=== PATIENT | male | born 1950 | race Two or more races ===

== ENCOUNTER 2016-03-28 08:20 | Emergency (ER) | payer OTHER ==
[~2016-03-28] VITALS: Ht 172.7 cm; Wt 104.8 kg
[~2016-03-28 08:20] MED LIST: ASPI81CH43 PO; ATOR20TA50 PO; DOCU60SY2 PO; ENA2.5T PO; GLIP-116 PO; INSLANTI SC; INSLISPI SC; MET25T PO; METF-316 PO; ZOLP12.564 PO
[2016-03-28 08:31] VITALS: BP 157/86
== END 2016-03-28 08:56 | disposition home or self-care (01) ==
LOC: ER 08:23
DX: I10 Essential (primary) hypertension (principal); E11.9 Type 2 diabetes mellitus without complications; I25.10 Atherosclerotic heart disease of native coronary artery without angina pectoris; E78.5 Hyperlipidemia, unspecified; Z76.0 Encounter for issue of repeat prescription; Z79.4 Long term (current) use of insulin

== ENCOUNTER 2016-04-24 13:35 | Emergency (ER) | payer OTHER ==
[~2016-04-24] VITALS: Ht 172.7 cm; Wt 99.8 kg
[2016-04-24] MEDS ORDERED: LIDOCAINE 1% HCL (LOCAL ANESTH.) INJ 20ML MDV ONE (15:38)
[2016-04-24] MEDS ORDERED: HYDROcodone-ACET 10/325MG TAB PO ONE (15:45)
[2016-04-24] MEDS ORDERED: TETANUS-DIPTH-ACEL PERTUSSIS 0.5ML SYRG IM ONE (15:45)
[2016-04-24 16:13] VITALS: BP 149/97
[2016-04-24] MEDS ORDERED: LIDOCAINE 1% HCL (LOCAL ANESTH.) INJ 20ML MDV IJ ONE (16:30)
[2016-04-24] MEDS ORDERED: BACITRACIN TOP OINT 1 UD PKG TOP ONE (18:00)
== END 2016-04-24 18:46 | disposition home or self-care (01) ==
LOC: ER 13:43
DX: S61.411A Laceration without foreign body of right hand, initial encounter (principal); I25.10 Atherosclerotic heart disease of native coronary artery without angina pectoris; I10 Essential (primary) hypertension; E11.9 Type 2 diabetes mellitus without complications; E78.5 Hyperlipidemia, unspecified; Z23 Encounter for immunization; Z79.4 Long term (current) use of insulin; Z79.899 Other long term (current) drug therapy; Z79.82 Long term (current) use of aspirin; W27.8XXA Contact with other nonpowered hand tool, initial encounter; Y93.89 Activity, other specified; Y99.8 Other external cause status; Y92.099 Unspecified place in other non-institutional residence as the place of occurrence of the external cause
CPT/HCPCS: 12002; 82962; 90471; 90715; 99283; J2001

== ENCOUNTER → 2016-05-09 | Outpatient (CLI) | payer OTHER ==
[2016-05-09 10:04] LABS: Basophils # (auto) 0.1 uL; Basophils % (auto) 0.6 % (0.0-2.0); Eosinophils # (auto) 0.4 uL; Eosinophils % (auto) 4.4 % (0.0-7.0); Hematocrit 45.3 % (41.0-53.0); Hemoglobin 15.3 g/dL (13.5-17.5); Lymphocytes # (auto) 3.2 uL; Mean Corpuscular Hemoglobin 30.8 pg (28.0-32.0); Mean Corpuscular Hgb Conc. 33.7 g/dL (32.0-36.0); Mean Corpuscular Volume 91.4 fL (80.0-100.0); Mean Platelet Volume 9.5 fL (7.4-10.4); Monocytes # (auto) 0.4 uL; Monocytes % (auto) 5.2 % (0.0-12.0); Neutrophils # (auto) 4.1 uL; Neutrophils % (auto) 50.8 % (37.0-80.0); Platelet Count (auto) 282 10^3/uL (140-450); Red Cell Distribution Width 13.8 % (11.6-16.0); White Blood Cell 8.1 10^3/uL (4.4-10.8)
[2016-05-09 10:15] LABS: Urine Bilirubin Negative (Negative); Urine Blood Negative /uL (Negative); Urine Color Yellow (Yellow); Urine Glucose Normal (Normal); Urine Ketone Negative (Negative); Urine Nitrite Negative (Negative); Urine RBC 1 /hpf (0 - 3); Urine Squamous Epithelial Cell FEW /hpf (<5); Urine Urobilinogen Normal (Negative)
[2016-05-09 11:02] LABS: Albumin 3.8 g/dL (3.4-5.0); BUN/Creatinine Ratio 20.5; Bilirubin, Total 0.3 mg/dL (0.2-1.0); Calcium 8.9 mg/dL (8.5-10.1); Potassium 4.4 mmol/L (3.5-5.1); Total Protein 7.3 g/dL (6.4-8.2)
== END | disposition home or self-care (01) ==
LOC: LAB 07:30
PROVIDERS: ATTEND Family Medicine
DX: E66.9 Obesity, unspecified (principal); E11.9 Type 2 diabetes mellitus without complications; I10 Essential (primary) hypertension; Z79.4 Long term (current) use of insulin; E78.5 Hyperlipidemia, unspecified
CPT/HCPCS: 36415; 80053; 80061; 81001; 82043; 82306; 82607; 83036; 84153; 85025

== ENCOUNTER → 2016-07-16 | Outpatient (CLI) | payer OTHER | END | disposition home or self-care (01) | LOC: XYW 08:18 | PROVIDERS: ATTEND Internal Medicine Cardiovascular Disease | DX: I34.0 Nonrheumatic mitral (valve) insufficiency (principal); I70.0 Atherosclerosis of aorta | CPT/HCPCS: 93306 ==

== ENCOUNTER → 2016-10-01 | Outpatient (CLI) | payer OTHER ==
[~2016-10-01] MED LIST changes: -METF-316 PO; +METF-372 PO
[2016-10-01 09:33] LABS: INR 0.92 (0.9-1.15); Partial Thromboplastin Time 27.5 sec (22.64-33.71)
[2016-10-01 09:41] LABS: Basophils # (auto) 0.1 uL; Basophils % (auto) 0.9 % (0.0-2.0); CONDITION Y; Eosinophils # (auto) 0.3 uL; Eosinophils % (auto) 3.9 % (0.0-7.0); Hematocrit 44.8 % (41.0-53.0); Hemoglobin 15.5 g/dL (13.5-17.5); Lymphocytes # (auto) 3.1 uL; Lymphocytes % (auto) 39.8 % (10.0-50.0); Mean Corpuscular Hemoglobin 31.6 pg (28.0-32.0); Mean Corpuscular Hgb Conc. 34.5 g/dL (32.0-36.0); Mean Corpuscular Volume 91.5 fL (80.0-100.0); Mean Platelet Volume 10.1 fL (7.4-10.4); Monocytes # (auto) 0.5 uL; Monocytes % (auto) 5.9 % (0.0-12.0); Neutrophils # (auto) 3.8 uL; Neutrophils % (auto) 49.5 % (37.0-80.0); Platelet Count (auto) 241 10^3/uL (140-450); Red Cell Distribution Width 13.7 % (11.6-16.0); White Blood Cell 7.7 10^3/uL (4.4-10.8)
[2016-10-01 10:05] LABS: Albumin 3.8 g/dL (3.4-5.0); BUN/Creatinine Ratio 17.6; Bilirubin, Total 0.3 mg/dL (0.2-1.0); Potassium 3.8 mmol/L (3.5-5.1); Total Protein 7.5 g/dL (6.4-8.2)
== END | disposition home or self-care (01) ==
LOC: LAB 08:08
PROVIDERS: ATTEND Family Medicine
DX: I10 Essential (primary) hypertension (principal); Z01.812 Encounter for preprocedural laboratory examination; E11.9 Type 2 diabetes mellitus without complications; I49.8 Other specified cardiac arrhythmias
CPT/HCPCS: 36415; 80053; 83036; 85025; 85610; 85730

== ENCOUNTER → 2016-12-10 | Outpatient (CLI) | payer OTHER ==
[~2016-12-10] VITALS: Ht 175.3 cm; Wt 102.1 kg
== END | disposition home or self-care (01) ==
LOC: Rad HDHVI 14:38
PROVIDERS: ATTEND Internal Medicine Cardiovascular Disease
DX: Z01.810 Encounter for preprocedural cardiovascular examination (principal); I10 Essential (primary) hypertension; E11.9 Type 2 diabetes mellitus without complications; E78.00 Pure hypercholesterolemia, unspecified; I25.2 Old myocardial infarction; I25.10 Atherosclerotic heart disease of native coronary artery without angina pectoris
CPT/HCPCS: 78452; 93017; 96374; A9500

== ENCOUNTER 2017-02-14 17:29 | Inpatient (IN) | payer OTHER ==
[~2017-02-14] VITALS: Ht 172.7 cm; Wt 105.2 kg
[2017-02-14 18:46] LABS: Urine Bilirubin Negative (Negative); Urine Blood Negative /uL (Negative); Urine Color Yellow (Yellow); Urine Glucose Normal (Normal); Urine Ketone Negative (Negative); Urine Nitrite Negative (Negative); Urine RBC <1 /hpf (0 - 3); Urine Sperm PRESENT /hpf (None Seen); Urine Urobilinogen Normal (Negative)
[2017-02-14 18:50] LABS: Basophils # (auto) 0.1 uL; Eosinophils # (auto) 0.3 uL; Eosinophils % (auto) 3.2 % (0.0-7.0); Hematocrit 43.1 % (41.0-53.0); Hemoglobin 15.1 g/dL (13.5-17.5); Lymphocytes # (auto) 2.5 uL; Lymphocytes % (auto) 30.5 % (10.0-50.0); Mean Corpuscular Hemoglobin 31.9 pg (28.0-32.0); Mean Corpuscular Hgb Conc. 34.9 g/dL (32.0-36.0); Mean Corpuscular Volume 91.4 fL (80.0-100.0); Mean Platelet Volume 8.8 fL (6.9-10.8); Monocytes # (auto) 0.5 uL; Monocytes % (auto) 6.7 % (0.0-12.0); Neutrophils # (auto) 4.8 uL; Neutrophils % (auto) 58.6 % (37.0-80.0); Nucleated Red Blood Cells % 0.1 %; Platelet Count (auto) 235 10^3/uL (140-450); Red Cell Distribution Width 13.8 % (11.8-14.3); White Blood Cell 8.2 10^3/uL (4.4-10.8)
[2017-02-14 19:05] LABS: Albumin 3.7 g/dL (3.4-5.0); Anion Gap 8 (5-15); Aspartate Aminotransferase 29 U/L (15-37); BUN/Creatinine Ratio 14.6; Blood Urea Nitrogen 13 mg/dL (7-18); Calcium 8.9 mg/dL (8.5-10.1); Carbon Dioxide 27 mmol/L (21-32); Chloride 103 mmol/L (98-107); GFR African American 110 mL/min; GFR Non-African American 91 mL/min; Glucose 117 mg/dL (74-106); Potassium 3.9 mmol/L (3.5-5.1); Sodium 138 mmol/L (136-145)
[2017-02-14 19:10] LABS: Alkaline Phosphatase 89 U/L (45-117); Bilirubin, Total 0.4 mg/dL (0.2-1.0); Total Protein 7.6 g/dL (6.4-8.2)
[2017-02-14 20:36] LABS: B-Type Natriuretic Peptide 19.15 pg/mL (0-100)
[2017-02-14 20:50] LABS: Temperature: 22.8 C (20.0-25.0)
[2017-02-14] MEDS ORDERED: NITROGLYCERIN 0.4MG/HR TOPICAL PATCH TD ONE (21:00)
[2017-02-14] MEDS ORDERED: ASPirin-EC 325mg tab PO ONE (21:00)
[2017-02-14] MEDS ORDERED: DEXTROSE (50%) 50ML SYRG IV PRN (22:30)
[2017-02-14] MEDS ORDERED: HYDROcodone-ACET 5/325MG TAB PO PRN (22:30)
[2017-02-14] MEDS ORDERED: MORPHINE SULF INJ 2 MG/ML SYRINGE 1ML IV PRN (22:30)
[2017-02-14] MEDS ORDERED: ZOLPIDEM TARTRATE 5 MG TAB PO PRN (22:30)
[2017-02-14] MEDS ORDERED: ONDANSETRON HCL 4 MG/2 ML VIAL IV PRN (22:30)
[2017-02-14] MEDS ORDERED: ACETAMINOPHEN 325 MG TAB PO PRN (22:30)
[2017-02-14] MEDS: ENALAPRIL MALEATE 2.5 MG TAB PO SCH (22:37)
[2017-02-14 23:46] VITALS: BP 143/82
[2017-02-15] MEDS: ACCU-CHEK COMFORT CURVE STRIP VI SCH ×4 (00:28→17:50)
[2017-02-15 00:38] VITALS: BP 143/82
[2017-02-15 05:00] VITALS: BP 152/87
[2017-02-15] MEDS: glipiZIDE 5 MG TAB PO SCH ×2 (06:13→17:45)
[2017-02-15] MEDS: InsuLIN REG 1unit/0.01ml Soln (100units/ml) SC SCH ×4 (06:13→17:50)
[2017-02-15 06:19] LABS: Basophils # (auto) 0.1 uL; Basophils % (auto) 0.9 % (0.0-2.0); Eosinophils # (auto) 0.3 uL; Eosinophils % (auto) 4.6 % (0.0-7.0); Hematocrit 42.8 % (41.0-53.0); Hemoglobin 14.8 g/dL (13.5-17.5); Lymphocytes # (auto) 2.7 uL; Lymphocytes % (auto) 38.4 % (10.0-50.0); Mean Corpuscular Hemoglobin 31.6 pg (28.0-32.0); Mean Corpuscular Hgb Conc. 34.4 g/dL (32.0-36.0); Mean Corpuscular Volume 91.8 fL (80.0-100.0); Mean Platelet Volume 8.8 fL (6.9-10.8); Monocytes # (auto) 0.5 uL; Monocytes % (auto) 7.3 % (0.0-12.0); Neutrophils # (auto) 3.5 uL; Neutrophils % (auto) 48.8 % (37.0-80.0); Nucleated Red Blood Cells % 0.1 %; Platelet Count (auto) 204 10^3/uL (140-450); Red Cell Distribution Width 13.9 % (11.8-14.3); White Blood Cell 7.1 10^3/uL (4.4-10.8)
[2017-02-15 06:36] LABS: Albumin 3.4 g/dL (3.4-5.0); Anion Gap 7 (5-15); Aspartate Aminotransferase 19 U/L (15-37); BUN/Creatinine Ratio 16.9; Blood Urea Nitrogen 14 mg/dL (7-18); Calcium 8.8 mg/dL (8.5-10.1); Carbon Dioxide 26 mmol/L (21-32); Chloride 107 mmol/L (98-107); GFR African American 119 mL/min; GFR Non-African American 98 mL/min; Glucose 199 mg/dL (74-106); Sodium 140 mmol/L (136-145)
[2017-02-15 06:41] LABS: Alkaline Phosphatase 85 U/L (45-117); Bilirubin, Total 0.4 mg/dL (0.2-1.0); Total Protein 6.8 g/dL (6.4-8.2)
[2017-02-15 07:58] VITALS: BP 130/61
[2017-02-15] MEDS: FAMOTIDINE 20 MG TAB PO SCH ×2 (09:42→22:17)
[2017-02-15] MEDS: ASPirin 81 mg TAB PO SCH (09:42)
[2017-02-15] MEDS: ENOXAPARIN SOD 40 MG/0.4 ML SYRINGE SC SCH (09:42)
[2017-02-15] MEDS: ENALAPRIL MALEATE 2.5 MG TAB PO SCH ×2 (09:43→22:17)
[2017-02-15] MEDS: METOPROLOL TARTRATE 25 MG TAB PO SCH ×2 (09:43→22:17)
[2017-02-15 12:00] VITALS: BP 145/81
[2017-02-15 17:07] VITALS: BP 143/87
[2017-02-15 21:30] VITALS: BP 144/77
[2017-02-15] MEDS: ATORVASTATIN 20 MG TAB PO SCH (22:17)
[2017-02-16 05:00] VITALS: BP 137/73
[2017-02-16 05:52] LABS: INR 0.95 (0.9-1.15); Prothrombin Time 10.4 sec (9.37-12.3)
[2017-02-16] MEDS: glipiZIDE 5 MG TAB PO SCH ×2 (07:05→17:29)
[2017-02-16] MEDS: ACCU-CHEK COMFORT CURVE STRIP VI SCH ×4 (07:05→17:29)
[2017-02-16] MEDS: InsuLIN REG 1unit/0.01ml Soln (100units/ml) SC SCH ×4 (07:06→17:29)
[2017-02-16 07:45] VITALS: BP 151/78
[2017-02-16] MEDS: ASPirin 81 mg TAB PO SCH (09:25)
[2017-02-16] MEDS: FAMOTIDINE 20 MG TAB PO SCH ×2 (09:26→22:22)
[2017-02-16] MEDS: ENALAPRIL MALEATE 2.5 MG TAB PO SCH ×2 (09:26→22:23)
[2017-02-16] MEDS: ENOXAPARIN SOD 40 MG/0.4 ML SYRINGE SC SCH (09:27)
[2017-02-16] MEDS: METOPROLOL TARTRATE 25 MG TAB PO SCH ×2 (09:27→22:22)
[2017-02-16 12:00] VITALS: BP 151/87
[2017-02-16] MEDS: NITROGLYCERIN 0.4 MG SL TAB SL PRN ×2 (14:28→14:40)
[2017-02-16 17:17] VITALS: BP 129/86
[2017-02-16 22:00] VITALS: BP 145/84
[2017-02-16] MEDS: ATORVASTATIN 20 MG TAB PO SCH (22:21)
[2017-02-17] MEDS: InsuLIN REG 1unit/0.01ml Soln (100units/ml) SC SCH ×5 (00:03→23:21)
[2017-02-17] MEDS: ACCU-CHEK COMFORT CURVE STRIP VI SCH ×5 (00:04→23:18)
[2017-02-17 05:00] VITALS: BP 119/69
[2017-02-17 05:40] LABS: Basophils # (auto) 0.1 uL; Basophils % (auto) 1.1 % (0.0-2.0); Eosinophils # (auto) 0.3 uL; Eosinophils % (auto) 3.8 % (0.0-7.0); Hemoglobin 15.9 g/dL (13.5-17.5); Lymphocytes # (auto) 2.8 uL; Lymphocytes % (auto) 33.2 % (10.0-50.0); Mean Corpuscular Hemoglobin 31.7 pg (28.0-32.0); Mean Corpuscular Hgb Conc. 34.7 g/dL (32.0-36.0); Mean Corpuscular Volume 91.4 fL (80.0-100.0); Mean Platelet Volume 9.1 fL (6.9-10.8); Monocytes # (auto) 0.6 uL; Monocytes % (auto) 7.1 % (0.0-12.0); Neutrophils # (auto) 4.6 uL; Neutrophils % (auto) 54.8 % (37.0-80.0); Nucleated Red Blood Cells % 0.1 %; Platelet Count (auto) 216 10^3/uL (140-450); Red Cell Distribution Width 13.6 % (11.8-14.3); White Blood Cell 8.4 10^3/uL (4.4-10.8)
[2017-02-17 05:57] LABS: Albumin 3.6 g/dL (3.4-5.0); Calcium 8.8 mg/dL (8.5-10.1); Potassium 3.9 mmol/L (3.5-5.1)
[2017-02-17 05:59] LABS: BUN/Creatinine Ratio 21.3
[2017-02-17 06:02] LABS: Bilirubin, Total 0.5 mg/dL (0.2-1.0); Total Protein 7.2 g/dL (6.4-8.2)
[2017-02-17] MEDS: glipiZIDE 5 MG TAB PO SCH ×2 (06:55→18:07)
[2017-02-17 08:20] VITALS: BP 138/81
[2017-02-17] MEDS: ASPirin 81 mg TAB PO SCH (10:00)
[2017-02-17] MEDS: ENOXAPARIN SOD 40 MG/0.4 ML SYRINGE SC SCH (10:00)
[2017-02-17] MEDS: ENALAPRIL MALEATE 2.5 MG TAB PO SCH ×2 (10:31→21:31)
[2017-02-17] MEDS: FAMOTIDINE 20 MG TAB PO SCH ×2 (10:31→21:31)
[2017-02-17] MEDS: METOPROLOL TARTRATE 25 MG TAB PO SCH ×2 (10:32→21:32)
[2017-02-17] MEDS ORDERED: LIDOCAINE 2%HCL (LOCAL ANESTH.) INJ 20ML MDV ONE (12:43)
[2017-02-17] MEDS ORDERED: IOHEXOL 350 MG/ML 100ML IJ ONE (12:43)
[2017-02-17 13:15] VITALS: BP 150/85
[2017-02-17] MEDS ORDERED: MIDAZOLAM HCL 1MG/1ML-2 ML VIAL ONE (13:53)
[2017-02-17] MEDS ORDERED: fentaNYL CITRATE 100 MCG/2 ML VL ONE (13:54)
[2017-02-17] MEDS ORDERED: SODIUM CHL 0.9% 0 ML ONE (13:55)
[2017-02-17] MEDS ORDERED: ANGIOMAX 250 MG VIAL IV ONE (14:06)
[2017-02-17] MEDS ORDERED: GABA-497 PO (16:33)
[2017-02-17] MEDS ORDERED: SIMV-8 PO (16:33)
[2017-02-17] MEDS ORDERED: BENA40TA7 PO (16:33)
[2017-02-17 16:51] VITALS: BP 126/77
[2017-02-17 18:00] VITALS: BP 141/80
[2017-02-17] MEDS: ATORVASTATIN 20 MG TAB PO SCH (21:31)
[2017-02-17 22:00] VITALS: BP 150/83
[2017-02-18 05:00] VITALS: BP 146/76
[2017-02-18] MEDS: ACCU-CHEK COMFORT CURVE STRIP VI SCH ×2 (05:51→12:00)
[2017-02-18] MEDS: InsuLIN REG 1unit/0.01ml Soln (100units/ml) SC SCH ×2 (05:51→12:00)
[2017-02-18] MEDS: glipiZIDE 5 MG TAB PO SCH (05:52)
[2017-02-18] MEDS ORDERED: ATOR20TA50 PO (08:32)
[2017-02-18 09:00] VITALS: BP 142/83
[2017-02-18] MEDS ORDERED: ASPirin 81 mg TAB PO SCH (10:00)
[2017-02-18] MEDS: ENALAPRIL MALEATE 2.5 MG TAB PO SCH (10:02)
[2017-02-18] MEDS: ENOXAPARIN SOD 40 MG/0.4 ML SYRINGE SC SCH (10:02)
[2017-02-18] MEDS: FAMOTIDINE 20 MG TAB PO SCH (10:02)
[2017-02-18] MEDS: METOPROLOL TARTRATE 25 MG TAB PO SCH (10:03)
[2017-02-18 10:43] VITALS: BP 142/83
[2017-02-18 12:00] VITALS: BP 145/79
== END 2017-02-18 12:08 | disposition home or self-care (01) | DRG 287 ==
LOC: ER 17:31 → TELE 17:32 → TELE-CENTR 23:30
PROVIDERS: ADMIT Nurse Practitioner; ATTEND Internal Medicine
PROC: 4A023N7 Measurement of Cardiac Sampling and Pressure, Left Heart, Percutaneous Approach (ICD-10-PCS; principal; 2017-02-17)
PROC: B2111ZZ Fluoroscopy of Multiple Coronary Arteries using Low Osmolar Contrast (ICD-10-PCS; 2017-02-17)
PROC: B2151ZZ Fluoroscopy of Left Heart using Low Osmolar Contrast (ICD-10-PCS; 2017-02-17)
DX: I25.119 Atherosclerotic heart disease of native coronary artery with unspecified angina pectoris (principal); E11.9 Type 2 diabetes mellitus without complications; I08.0 Rheumatic disorders of both mitral and aortic valves; E78.5 Hyperlipidemia, unspecified; I10 Essential (primary) hypertension; Z82.49 Family history of ischemic heart disease and other diseases of the circulatory system; Z83.3 Family history of diabetes mellitus; Z79.82 Long term (current) use of aspirin; Z79.4 Long term (current) use of insulin
CPT/HCPCS: 36415; 71010; 80053; 81001; 82962; 83036; 83735; 83880; 84484; 85025; 85610; 85730; 86850; 86900; 86901; 93005; 93458; 93971; 99152; J1815; J2250

== ENCOUNTER 2017-03-19 00:45 | Emergency (ER) | payer OTHER ==
[~2017-03-19] VITALS: Ht 172.7 cm; Wt 99.8 kg
[~2017-03-19 00:45] MED LIST changes: +BENA40TA7 PO; -ENA2.5T PO; +GABA300C10 PO; -GLIP-116 PO; +SIMV-8 PO
[2017-03-19 00:51] VITALS: BP 177/106
[2017-03-19 01:29] LABS: Basophils # (auto) 0.1 uL; Basophils % (auto) 1.4 % (0.0-2.0); Eosinophils # (auto) 0.2 uL; Eosinophils % (auto) 3.4 % (0.0-7.0); Hematocrit 43.8 % (41.0-53.0); Hemoglobin 15.3 g/dL (13.5-17.5); Lymphocytes % (auto) 30.6 % (10.0-50.0); Mean Corpuscular Hemoglobin 31.8 pg (28.0-32.0); Mean Corpuscular Hgb Conc. 34.8 g/dL (32.0-36.0); Mean Corpuscular Volume 91.3 fL (80.0-100.0); Monocytes # (auto) 0.4 uL; Monocytes % (auto) 6.8 % (0.0-12.0); Neutrophils # (auto) 3.8 uL; Neutrophils % (auto) 57.8 % (37.0-80.0); Platelet Count (auto) 213 10^3/uL (140-450); Red Cell Distribution Width 13.7 % (11.8-14.3); White Blood Cell 6.5 10^3/uL (4.4-10.8)
[2017-03-19 01:43] LABS: INR 0.93 (0.9-1.15); Partial Thromboplastin Time 27.1 sec (22.64-33.71); Prothrombin Time 10.1 sec (9.37-12.3)
[2017-03-19 02:07] LABS: Alanine Aminotransferase 30 U/L (16-61); Alkaline Phosphatase 117 U/L (45-117); Anion Gap 7 (5-15); Aspartate Aminotransferase 20 U/L (15-37); BUN/Creatinine Ratio 16.7; Bilirubin, Total 0.4 mg/dL (0.2-1.0); Blood Urea Nitrogen 15 mg/dL (7-18); Carbon Dioxide 27 mmol/L (21-32); Chloride 104 mmol/L (98-107); GFR African American 108 mL/min; GFR Non-African American 89 mL/min; Glucose 216 mg/dL (74-106); Potassium 3.9 mmol/L (3.5-5.1); Sodium 138 mmol/L (136-145); Total Protein 7.8 g/dL (6.4-8.2)
== END 2017-03-19 03:48 | disposition left against medical advice (07) ==
LOC: ER 00:46
DX: I10 Essential (primary) hypertension (principal); R51 Headache; R11.0 Nausea; Z53.21 Procedure and treatment not carried out due to patient leaving prior to being seen by health care provider
CPT/HCPCS: 36415; 71045; 80053; 83880; 84484; 85025; 85610; 85730; 93005

== ENCOUNTER → 2017-10-09 | Outpatient (CLI) | payer OTHER ==
[2017-10-09 11:57] LABS: Basophils # (auto) 0.1 uL; Basophils % (auto) 1.1 % (0.0-2.0); Eosinophils # (auto) 0.5 uL; Eosinophils % (auto) 7.1 % (0.0-7.0); Hematocrit 43.8 % (41.0-53.0); Lymphocytes # (auto) 2.4 uL; Mean Corpuscular Hemoglobin 31.6 pg (28.0-32.0); Mean Corpuscular Hgb Conc. 34.3 g/dL (32.0-36.0); Monocytes # (auto) 0.4 uL; Monocytes % (auto) 6.7 % (0.0-12.0); Neutrophils # (auto) 3.3 uL; Neutrophils % (auto) 49.1 % (37.0-80.0); Nucleated Red Blood Cells % 0.1 %; Platelet Count (auto) 224 10^3/uL (140-450); Red Blood Cells 4.76 10^6/uL (4.5-5.90); Red Cell Distribution Width 13.7 % (11.8-14.3); White Blood Cell 6.7 10^3/uL (4.4-10.8)
[2017-10-09 12:19] LABS: Urine Bacteria NONE SEEN /hpf (None Seen); Urine Blood Negative /uL (Negative); Urine Mucus FEW (None Seen); Urine Specific Gravity 1.028 (1.001-1.035); Urine WBC 1 /hpf (0 - 3)
[2017-10-09 13:33] LABS: Bilirubin, Total 0.6 mg/dL (0.2-1.0); Calcium 8.8 mg/dL (8.5-10.1); Potassium 4.1 mmol/L (3.5-5.1); Total Protein 7.3 g/dL (6.4-8.2)
== END | disposition home or self-care (01) ==
LOC: LAB 11:34
PROVIDERS: ATTEND Family Medicine
DX: E11.9 Type 2 diabetes mellitus without complications (principal); I10 Essential (primary) hypertension; M54.5 Low back pain; E78.5 Hyperlipidemia, unspecified; Z79.82 Long term (current) use of aspirin; Z79.899 Other long term (current) drug therapy
CPT/HCPCS: 36415; 80053; 80061; 81001; 82043; 82270; 83036; 85025

== ENCOUNTER → 2018-05-04 | Day surgery (SDC) | payer OTHER ==
[2018-04-30 12:15] LABS: Basophils # (auto) 0.1 uL; Basophils % (auto) 0.9 % (0.0-2.0); Eosinophils # (auto) 0.4 uL; Eosinophils % (auto) 5.7 % (0.0-7.0); Hematocrit 46.3 % (41.0-53.0); Hemoglobin 15.7 g/dL (13.5-17.5); Lymphocytes # (auto) 2.3 uL; Lymphocytes % (auto) 34.4 % (10.0-50.0); Mean Corpuscular Hemoglobin 31.4 pg (28.0-32.0); Mean Corpuscular Volume 92.5 fL (80.0-100.0); Monocytes # (auto) 0.4 uL; Monocytes % (auto) 6.5 % (0.0-12.0); Neutrophils # (auto) 3.5 uL; Neutrophils % (auto) 52.5 % (37.0-80.0); Nucleated Red Blood Cells % 0.1 %; Platelet Count (auto) 220 10^3/uL (140-450); Red Cell Distribution Width 13.9 % (11.8-14.3); White Blood Cell 6.6 10^3/uL (4.4-10.8)
[2018-04-30 12:37] LABS: INR 0.92 (0.9-1.15); Partial Thromboplastin Time 28.7 sec (23.78-33.04); Prothrombin Time 9.9 sec (9.27-12.13)
[~2018-05-04] VITALS: Ht 175.3 cm; Wt 102.1 kg
[~2018-05-04] MED LIST changes: -ATOR20TA50 PO; -BENA40TA7 PO; -DOCU60SY2 PO; +FLUMAZENIL 0.1 MG/ML INJ 10ML MDV IV ONE; +MECL-87 PO; +NALOXONE HCL 0.4 MG/ML VIAL ONE; -SIMV-8 PO; +SODIUM CHLORIDE LOCK 10 ML ONE; +TRAM50TA2 PO; -ZOLP12.564 PO; +diphenhdrAMINE HCL 50 MG/1 ML VL ONE; +fentaNYL CITRATE 100 MCG/2 ML VL ONE
[2018-05-04] MEDS: fentaNYL CITRATE 100 MCG/2 ML VL ONE ×2 (09:08→13:13)
[2018-05-04] MEDS: MIDAZOLAM HCL 5 MG/ML-1ML VIAL ONE ×2 (09:08→09:13)
[2018-05-04 10:05] VITALS: BP 145/81
== END | disposition home or self-care (01) ==
LOC: GI 07:58
PROVIDERS: ATTEND Internal Medicine Gastroenterology
DX: Z12.11 Encounter for screening for malignant neoplasm of colon (principal); D12.2 Benign neoplasm of ascending colon; D12.7 Benign neoplasm of rectosigmoid junction; I25.118 Atherosclerotic heart disease of native coronary artery with other forms of angina pectoris; R07.89 Other chest pain; E11.9 Type 2 diabetes mellitus without complications; G40.909 Epilepsy, unspecified, not intractable, without status epilepticus; Z98.890 Other specified postprocedural states; Z79.899 Other long term (current) drug therapy
CPT/HCPCS: 36415; 45380; 45385; 82962; 85025; 85610; 85730; 88305; J1200; J2250; J3010; J7030; 99152

== ENCOUNTER → 2018-06-15 | Outpatient (CLI) | payer OTHER ==
[~2018-06-15] MED LIST changes: -FLUMAZENIL 0.1 MG/ML INJ 10ML MDV IV ONE; -NALOXONE HCL 0.4 MG/ML VIAL ONE; -SODIUM CHLORIDE LOCK 10 ML ONE; -diphenhdrAMINE HCL 50 MG/1 ML VL ONE; -fentaNYL CITRATE 100 MCG/2 ML VL ONE
[2018-06-15 11:04] LABS: Basophils # (auto) 0 uL; Basophils % (auto) 0.5 % (0.0-2.0); Eosinophils # (auto) 0.5 uL; Eosinophils % (auto) 6.5 % (0.0-7.0); Hematocrit 43.6 % (41.0-53.0); Hemoglobin 14.8 g/dL (13.5-17.5); Lymphocytes # (auto) 2.6 uL; Lymphocytes % (auto) 36.5 % (10.0-50.0); Mean Corpuscular Hemoglobin 31.2 pg (28.0-32.0); Mean Corpuscular Hgb Conc. 33.9 g/dL (32.0-36.0); Monocytes # (auto) 0.4 uL; Neutrophils # (auto) 3.6 uL; Neutrophils % (auto) 50.5 % (37.0-80.0); Nucleated Red Blood Cells % 0.1 %; Platelet Count (auto) 203 10^3/uL (140-450); Red Blood Cells 4.74 10^6/uL (4.5-5.90); Red Cell Distribution Width 13.8 % (11.8-14.3); White Blood Cell 7.2 10^3/uL (4.4-10.8)
[2018-06-15 11:14] LABS: Urine Bacteria NONE SEEN /hpf (None Seen); Urine Blood TRACE /uL (Negative); Urine Mucus FEW (None Seen); Urine Specific Gravity 1.012 (1.001-1.035); Urine WBC <1 /hpf (0 - 3)
[2018-06-15 11:40] LABS: Potassium 4.4 mmol/L (3.5-5.1)
[2018-06-15 12:01] LABS: Albumin 3.8 g/dL (3.4-5.0); BUN/Creatinine Ratio 20.5; Bilirubin, Total 0.5 mg/dL (0.2-1.0); Calcium 9.1 mg/dL (8.5-10.1); Total Protein 7.1 g/dL (6.4-8.2)
== END | disposition home or self-care (01) ==
LOC: LAB 09:14
PROVIDERS: ATTEND Family Medicine
DX: I10 Essential (primary) hypertension (principal); E11.9 Type 2 diabetes mellitus without complications; E66.09 Other obesity due to excess calories
CPT/HCPCS: 36415; 80053; 80061; 81001; 82043; 82607; 83036; 84443; 85025

== ENCOUNTER → 2018-07-07 | Outpatient (CLI) | payer OTHER | END | disposition home or self-care (01) | LOC: Rad HDHVI 16:02 | PROVIDERS: ATTEND Internal Medicine Cardiovascular Disease | DX: R07.89 Other chest pain (principal); I10 Essential (primary) hypertension | CPT/HCPCS: 93306 ==

== ENCOUNTER 2018-12-17 12:28 | Inpatient (IN) | payer OTHER ==
[~2018-12-17] VITALS: Ht 170.2 cm; Wt 107.0 kg
[2018-12-17 13:42] LABS: Basophils # (auto) 0.1 uL; Basophils % (auto) 0.9 % (0.0-2.0); Eosinophils # (auto) 0.5 uL; Eosinophils % (auto) 5.4 % (0.0-7.0); Hematocrit 43.9 % (41.0-53.0); Hemoglobin 15.2 g/dL (13.5-17.5); Lymphocytes # (auto) 2.5 uL; Lymphocytes % (auto) 26.9 % (10.0-50.0); Mean Corpuscular Hemoglobin 31.9 pg (28.0-32.0); Mean Corpuscular Hgb Conc. 34.6 g/dL (32.0-36.0); Mean Corpuscular Volume 92.2 fL (80.0-100.0); Monocytes # (auto) 0.6 uL; Monocytes % (auto) 6.2 % (0.0-12.0); Neutrophils # (auto) 5.7 uL; Neutrophils % (auto) 60.6 % (37.0-80.0); Nucleated Red Blood Cells % 0.1 %; Platelet Count (auto) 225 10^3/uL (140-450); Red Blood Cells 4.76 10^6/uL (4.5-5.90); White Blood Cell 9.4 10^3/uL (4.4-10.8)
[2018-12-17 14:02] LABS: Alanine Aminotransferase 31 U/L (16-61); Albumin 3.9 g/dL (3.4-5.0); Anion Gap 6 (5-15); Aspartate Aminotransferase 26 U/L (15-37); BUN/Creatinine Ratio 18.3; Blood Urea Nitrogen 19 mg/dL (7-18); Calcium 8.8 mg/dL (8.5-10.1); Carbon Dioxide 27 mmol/L (21-32); Chloride 108 mmol/L (98-107); GFR African American 91 mL/min; GFR Non-African American 75 mL/min; Glucose 133 mg/dL (74-106); Potassium 4.2 mmol/L (3.5-5.1); Sodium 141 mmol/L (136-145)
[2018-12-17 14:07] LABS: Alkaline Phosphatase 94 U/L (45-117); Bilirubin, Total 0.5 mg/dL (0.2-1.0); Total Protein 7.6 g/dL (6.4-8.2)
[2018-12-17 14:28] LABS: Urine Bacteria FEW /hpf (None Seen); Urine Blood Negative /uL (Negative); Urine Mucus FEW (None Seen); Urine Specific Gravity 1.018 (1.001-1.035); Urine WBC <1 /hpf (0 - 3)
[2018-12-17] MEDS ORDERED: IOHEXOL 300 MG/ML 100ML BOTTLE IJ ONE (16:08)
[2018-12-17] MEDS ORDERED: PROMETHAZINE HCL 25 MG/ML 1ML IV PRN (19:15)
[2018-12-17] MEDS ORDERED: NITROGLYCERIN 0.4 MG SL TAB SL PRN (19:15)
[2018-12-17] MEDS ORDERED: ALBUTEROL SULF 2.5 MG/0.5ML(0.5%) NEB SOLN NEB PRN (19:15)
[2018-12-17] MEDS ORDERED: MORPHINE SULF INJ 2 MG/ML SYRINGE 1ML IV PRN (19:15)
[2018-12-17] MEDS ORDERED: DEXTROSE (50%) 50ML SYRG IV PRN (19:15)
[2018-12-17] MEDS ORDERED: ACETAMINOPHEN 500 MG TAB PO PRN (19:15)
[2018-12-17] MEDS ORDERED: HYDROcodone-ACET 5/325MG TAB PO PRN (19:15)
[2018-12-17] MEDS ORDERED: MORPHINE SULFATE 4 MG/ML SYR/VIAL IV PRN (19:15)
[2018-12-17] MEDS: SODIUM CHLORIDE 0.9% 1,000 ML IV SCH (19:57)
[2018-12-17 20:33] VITALS: BP 195/95
[2018-12-17 21:30] VITALS: BP 141/70
--- NOTE | 2018-12-17 21:30 | NUR ---
Telemetry admit from ER SABILUCINDA BARLOW admitted to Telemetry unit. Patient oriented to Dee Dee Zuluaga, primary RN, unit, room, bed, and unit policies regarding patient care and visiting hours. Patient now on continuous telemetry monitoring, tele box # 57 and telemetry reading on arrival to unit is sinus rhythm 72. Patient placed on bedside oxygen, weighed by bedscale and encouraged to call if they need something. All questions and concerns addressed, patient verbalized understanding. Note:
[2018-12-17] MEDS ORDERED: INSLISPI SC (22:45)
[2018-12-17] MEDS ORDERED: INFLUENZA QUAD 2019-2020 0.5ml SYRG IM ONE (23:15)
[2018-12-17 23:23] VITALS: BP 141/70
[2018-12-17] MEDS: METOPROLOL TARTRATE 25 MG TAB PO SCH (23:59)
[2018-12-18] MEDS: INSULIN LANTUS (GLARGINE) 1 /0.01ml (100units/ml) SC SCH ×3 (00:05→22:39)
[2018-12-18] MEDS: ACCU-CHEK COMFORT CURVE STRIP VI SCH ×5 (00:05→22:10)
[2018-12-18] MEDS: InsuLIN REG 1unit/0.01ml Soln (100units/ml) SC SCH ×5 (00:06→22:38)
[2018-12-18 05:11] LABS: Basophils # (auto) 0.1 uL; Basophils % (auto) 0.9 % (0.0-2.0); Eosinophils # (auto) 0.5 uL; Eosinophils % (auto) 7.7 % (0.0-7.0); Hematocrit 42.2 % (41.0-53.0); Hemoglobin 14.6 g/dL (13.5-17.5); Lymphocytes # (auto) 2.8 uL; Mean Corpuscular Hemoglobin 31.9 pg (28.0-32.0); Mean Corpuscular Hgb Conc. 34.5 g/dL (32.0-36.0); Mean Corpuscular Volume 92.6 fL (80.0-100.0); Monocytes # (auto) 0.5 uL; Monocytes % (auto) 6.6 % (0.0-12.0); Neutrophils # (auto) 3.1 uL; Neutrophils % (auto) 44.8 % (37.0-80.0); Platelet Count (auto) 194 10^3/uL (140-450); Red Blood Cells 4.56 10^6/uL (4.5-5.90); Red Cell Distribution Width 13.7 % (11.8-14.3); White Blood Cell 6.9 10^3/uL (4.4-10.8)
[2018-12-18 05:31] VITALS: BP 136/85
[2018-12-18] MEDS: SODIUM CHLORIDE 0.9% 1,000 ML IV SCH ×2 (05:44→15:32)
[2018-12-18 05:56] LABS: Alanine Aminotransferase 27 U/L (16-61); Alkaline Phosphatase 82 U/L (45-117); Anion Gap 6 (5-15); Aspartate Aminotransferase 21 U/L (15-37); Blood Urea Nitrogen 17 mg/dL (7-18); Calcium 8.4 mg/dL (8.5-10.1); Carbon Dioxide 26 mmol/L (21-32); Chloride 111 mmol/L (98-107); GFR African American 122 mL/min; GFR Non-African American 101 mL/min; Glucose 155 mg/dL (74-106); Potassium 3.9 mmol/L (3.5-5.1); Sodium 143 mmol/L (136-145)
[2018-12-18 05:57] LABS: Albumin 3.5 g/dL (3.4-5.0); Bilirubin, Total 0.4 mg/dL (0.2-1.0); Total Protein 6.8 g/dL (6.4-8.2)
--- NOTE | 2018-12-18 07:30 | NUR ---
Opening Shift Note Assumed care of patient, awake and alert. No S/S of distress/SOB or pain. Instructed on POC and to call for assist PRN, will continue to monitor for changes Q1hr and PRN.
[2018-12-18 08:00] VITALS: BP 126/76
[2018-12-18 09:00] VITALS: BP 126/76
[2018-12-18] MEDS: NITROGLYCERIN 0.2MG/HR TOPICAL PATCH TD SCH (10:00)
[2018-12-18] MEDS: METOPROLOL TARTRATE 25 MG TAB PO SCH ×2 (10:13→22:09)
[2018-12-18] MEDS: ASPirin 81 mg TAB PO SCH (10:13)
[2018-12-18] MEDS: PANTOPRAZOLE 40 MG TAB PO SCH (10:14)
--- NOTE | 2018-12-18 10:29 | NUR ---
Respiratory note: ASSESSED PT FOR PRN MEDNEB TX. HR 87, RR 16, POX 97% ON ROOM AIR. BREATH SOUNDS CLEAR THROUGHOUT. NO S/S OF RESPIRATORY DISTRESS NOTED. MEDNEB TX NOT INDICATED AT THIS TIME. ADVISED PT TO CALL FOR RT IF NEEDED.
[2018-12-18 13:00] VITALS: BP 157/94
--- NOTE | 2018-12-18 14:28 | NUR ---
SS consult regarding Advance Directive. Provided pt with information on [facility] and copy of form. Pt was receptive.
[2018-12-18 17:00] VITALS: BP 147/76
--- NOTE | 2018-12-18 18:43 | NUR ---
RT NOTE PT WAS SEEN BY RT FOR PRN HHN TX. PT STATES NO TREATMENT NEEDED AT THIS TIME. NO SOB OR DISTRESS NOTED. HR 70, RR 16, BS CLEAR/DIMINISHED, POX 95% ON ROOM AIR. PT AWARE TO CALL IF SOB OR WHEEZES. NO PRN TX INDICATED AT THIS TIME. CONT ORDERED Addendum: 12/18/18 at 1900 by Valentina Cody RT Amended: Links added.
--- NOTE | 2018-12-18 19:30 | NUR ---
Opening Shift Note Assumed care of patient, awake and alert. No S/S of distress/SOB; pt has no c/o pain. Instructed on POC and to call for assist PRN; Pt VU. This RN will continue to monitor for changes Q1hr and PRN. Pt cont to refuse restart of IV though this RN explained precaution for pt's with CV hx needing IV access in case of emergent need. Pt thanked the nurse "for your care of me," but cont'd to refuse. Bed in low position with HOB in semi-Durham's position. Call light within pt's reach in his bed.
--- NOTE | 2018-12-18 22:35 | NUR ---
Pt settling to sleep having received Nitro-stat i sublingual for c/o "a little pressure" over the L upper chest. Pt denied pain, "just pressure. HR was 68 -72 with this RN at watching telemetry box readout. No other s/sx. Pain completely gone within 3 minutes of faculty i on call medical assistant. Pt smile and thanked this RN.
[2018-12-19] VITALS (7 sets, daily range): BP systolic 126–143; BP diastolic 64–86
[2018-12-19] MEDS: SODIUM CHLORIDE 0.9% 1,000 ML IV SCH ×3 (01:07→21:07)
[2018-12-19] MEDS: ACCU-CHEK COMFORT CURVE STRIP VI SCH ×4 (06:40→23:09)
[2018-12-19] MEDS: InsuLIN REG 1unit/0.01ml Soln (100units/ml) SC SCH ×4 (06:47→23:09)
[2018-12-19] MEDS: NITROGLYCERIN 0.2MG/HR TOPICAL PATCH TD SCH (10:00)
[2018-12-19] MEDS: ASPirin 81 mg TAB PO SCH (10:11)
[2018-12-19] MEDS: INSULIN LANTUS (GLARGINE) 1 /0.01ml (100units/ml) SC SCH ×2 (10:12→23:09)
[2018-12-19] MEDS: PANTOPRAZOLE 40 MG TAB PO SCH (10:12)
[2018-12-19] MEDS: METOPROLOL TARTRATE 25 MG TAB PO SCH ×2 (10:12→23:11)
--- NOTE | 2018-12-19 11:01 | NUR ---
Resp note: PT awake and alert. No signs of sob/resp.distress. R/A sats=97%, HR=68,RR=16. B/S clear. PT instructed to call RN if sob/occurs. PT understood instructions.
--- NOTE | 2018-12-19 15:40 | NUR ---
spoke with lab to clarify Dr. Bueno's order. the lab will contact me back when the order is clarified and the correct order will be placed.
--- NOTE | 2018-12-19 17:18 | NUR ---
PAGE SENT OUT TO DR. ASTUDILLO TO INFORM HIM OF THE CHANGES TO THE LAB ORDERS.
[2018-12-19] MEDS ORDERED: LACTULOSE 20Gm/30ML SOLN PO ONE (17:30)
--- NOTE | 2018-12-19 19:18 | NUR ---
PT ASSESSED FOR PRN MED NEB TX. SPO2 95% ON RA, HR 74. PT DENIES ANY RESPIRATORY DISTRESS. NO TX INDICATED AT THIS TIME. PT IS AWARE TO HAVE RT PAGE IF TX NEEDED.
[2018-12-20 05:05] VITALS: BP 133/65
[2018-12-20 05:32] LABS: Basophils # (auto) 0.1 uL; Basophils % (auto) 0.8 % (0.0-2.0); Eosinophils # (auto) 0.5 uL; Eosinophils % (auto) 5.9 % (0.0-7.0); Hematocrit 42.1 % (41.0-53.0); Hemoglobin 14.7 g/dL (13.5-17.5); Lymphocytes # (auto) 2.7 uL; Lymphocytes % (auto) 34.1 % (10.0-50.0); Mean Corpuscular Hemoglobin 32.2 pg (28.0-32.0); Monocytes # (auto) 0.6 uL; Monocytes % (auto) 7.2 % (0.0-12.0); Neutrophils # (auto) 4.2 uL; Nucleated Red Blood Cells % 0.1 %; Platelet Count (auto) 193 10^3/uL (140-450); Red Blood Cells 4.57 10^6/uL (4.5-5.90); Red Cell Distribution Width 13.3 % (11.8-14.3)
[2018-12-20 05:56] LABS: Potassium 3.8 mmol/L (3.5-5.1)
[2018-12-20 05:59] LABS: BUN/Creatinine Ratio 23.8; Calcium 8.7 mg/dL (8.5-10.1)
[2018-12-20] MEDS: InsuLIN REG 1unit/0.01ml Soln (100units/ml) SC SCH ×4 (07:00→22:00)
[2018-12-20] MEDS: ACCU-CHEK COMFORT CURVE STRIP VI SCH ×4 (07:00→22:00)
[2018-12-20] MEDS: SODIUM CHLORIDE 0.9% 1,000 ML IV SCH ×2 (07:07→17:07)
--- NOTE | 2018-12-20 07:30 | NUR ---
Opening Shift Note Assumed care of patient, sleeping and easily aroused. No S/S of distress/SOB or pain. Instructed on POC and to call for assist PRN, will continue to monitor for changes Q1hr and PRN.
[2018-12-20 08:00] VITALS: BP 161/78
[2018-12-20 09:12] VITALS: BP 161/78
[2018-12-20] MEDS: NITROGLYCERIN 0.2MG/HR TOPICAL PATCH TD SCH (10:00)
[2018-12-20] MEDS: ASPirin 81 mg TAB PO SCH (10:06)
[2018-12-20] MEDS: INSULIN LANTUS (GLARGINE) 1 /0.01ml (100units/ml) SC SCH ×2 (10:07→22:00)
[2018-12-20] MEDS: METOPROLOL TARTRATE 25 MG TAB PO SCH ×2 (10:07→23:31)
[2018-12-20] MEDS: PANTOPRAZOLE 40 MG TAB PO SCH (10:07)
--- NOTE | 2018-12-20 11:59 | NUR ---
PATIENT REFUSING IV PLACEMENT. INFORMED PATIENT THAT HE WILL NEED THEM FOR TOMORROW AND THE PATIENT IS REFUSING THEM TO BE PLACED RIGHT NOW. WILL TRY AGAIN LATER.
[2018-12-20 12:19] VITALS: BP 163/85
--- NOTE | 2018-12-20 12:42 | NUR ---
LAB ORDERS SENT OUT PER DR. ASTUDILLO'S ORDERS COCCIDIOIDES ANTIBODY BY COMPLEMENT FIXATION AND COCCIDIOIDES ID
[2018-12-20 16:46] VITALS: BP 146/82
--- NOTE | 2018-12-20 19:02 | NUR ---
IV insertion IV access obtained, via clean sterile technique by inserting 20 gauge catheter at left forearm after 2 attempt(s). IV secured properly. No trauma to site. Patient tolerated well.
--- NOTE | 2018-12-20 19:30 | NUR ---
Opening Shift Note Assumed care of patient, awake and alert. No S/S of distress/SOB or pain.One IV at this time, will start another IV for stress test. Aware of stress test Instructed on POC and to call for assist PRN, will continue to monitor for changes Q1hr and PRN.
[2018-12-20 22:14] VITALS: BP 131/73
--- NOTE | 2018-12-20 23:00 | NUR ---
Held insulin due to stress test in am and NPO after 0000. No distress noted.
[2018-12-20] MEDS: TEMAZEPAM 15 MG CAP PO PRN (23:42)
[2018-12-21] MEDS: SODIUM CHLORIDE 0.9% 1,000 ML IV SCH ×2 (03:07→13:07)
[2018-12-21 05:10] VITALS: BP 137/68
[2018-12-21 05:47] LABS: Basophils # (auto) 0.1 uL; Basophils % (auto) 0.8 % (0.0-2.0); Eosinophils # (auto) 0.5 uL; Eosinophils % (auto) 6.6 % (0.0-7.0); Hematocrit 41.5 % (41.0-53.0); Hemoglobin 14.6 g/dL (13.5-17.5); Lymphocytes # (auto) 2.7 uL; Lymphocytes % (auto) 33.6 % (10.0-50.0); Mean Corpuscular Hemoglobin 32.5 pg (28.0-32.0); Mean Corpuscular Hgb Conc. 35.1 g/dL (32.0-36.0); Mean Corpuscular Volume 92.7 fL (80.0-100.0); Monocytes # (auto) 0.5 uL; Monocytes % (auto) 6.2 % (0.0-12.0); Neutrophils # (auto) 4.2 uL; Neutrophils % (auto) 52.8 % (37.0-80.0); Nucleated Red Blood Cells % 0.1 %; Platelet Count (auto) 196 10^3/uL (140-450); Red Blood Cells 4.48 10^6/uL (4.5-5.90); Red Cell Distribution Width 13.4 % (11.8-14.3); White Blood Cell 7.9 10^3/uL (4.4-10.8)
[2018-12-21 06:12] LABS: BUN/Creatinine Ratio 23.6; Calcium 8.4 mg/dL (8.5-10.1); Potassium 3.8 mmol/L (3.5-5.1)
[2018-12-21] MEDS: InsuLIN REG 1unit/0.01ml Soln (100units/ml) SC SCH ×4 (07:00→22:50)
[2018-12-21] MEDS: ACCU-CHEK COMFORT CURVE STRIP VI SCH ×4 (07:06→22:50)
--- NOTE | 2018-12-21 07:40 | NUR ---
Opening Patient asleep in bed, bed in lowest position, call light within reach. No distress noted at this time. Will f/u with morning assessment. Patient potassium is 3.8 bun 21 UA shows few bacteria EF 60% stress test pending today, per noc nurse if this patient's stress test negative it is a possible discharge, will f/u with primary hospitalist. Will continue to monitor
[2018-12-21] MEDS ORDERED: ADENOSINE 89 MG in GIVE UN-DILUTED 0 ML IV STA (08:32)
[2018-12-21 09:07] VITALS: BP 131/76
--- NOTE | 2018-12-21 09:23 | NUR ---
off unit for stress test
[2018-12-21] MEDS: INSULIN LANTUS (GLARGINE) 1 /0.01ml (100units/ml) SC SCH ×2 (10:00→22:50)
[2018-12-21] MEDS: METOPROLOL TARTRATE 25 MG TAB PO SCH ×2 (10:00→22:50)
[2018-12-21] MEDS: ASPirin 81 mg TAB PO SCH (10:00)
[2018-12-21] MEDS: PANTOPRAZOLE 40 MG TAB PO SCH (10:00)
[2018-12-21] MEDS: NITROGLYCERIN 0.2MG/HR TOPICAL PATCH TD SCH (10:00)
[2018-12-21 10:04] VITALS: BP 137/83
--- NOTE | 2018-12-21 10:57 | NUR ---
dr gayle states he will discharge patient tomorrow if stress test is normal, awaiting completion and reading of stress test at this time
--- NOTE | 2018-12-21 12:07 | NUR ---
NUTRITION ASSESSMENT NOTES Please refer to link notes of nutrition screen form filed under the intervention section of the plan of care for further details. Est. Needs: 1600 kcal to 2150 kcal (15-20 kcal/kgBW), 67 gms to 80 gms pro (1.0-1.2 gms/kgIBW: 67 kg). Will continue to monitor pertinent labs and reassess nutrient need prn Thank you. Addendum: 12/21/18 at [address] Amended: Links added.
[2018-12-21 12:43] VITALS: BP 141/80
--- NOTE | 2018-12-21 15:13 | NUR ---
nurse note patient asks if dr coleman will complete the egd in hospital while he is here since he planned to do as outpatient, will page md coleman.
--- NOTE | 2018-12-21 15:15 | NUR ---
dr coleman calling states, they are too short staffed tomorrow to complete the procedure
[2018-12-21 17:05] VITALS: BP 160/90
--- NOTE | 2018-12-21 19:01 | NUR ---
Opening Shift Note Assumed care of patient asleep with breathing even and unlabored. No S/S of distress or pain. Will continue to monitor for changes Q1hr and PRN. Side rails up x2. Bed locked in lowest position. Call light within reach.
[2018-12-21 22:12] VITALS: BP 136/59
[2018-12-21] MEDS ORDERED: POLYETHYLENE GLYCOL 17 GM PWDR PO PRN (22:30)
[2018-12-21] MEDS: TEMAZEPAM 15 MG CAP PO PRN (22:51)
[2018-12-22] MEDS: SODIUM CHLORIDE 0.9% 1,000 ML IV SCH ×3 (03:24→22:54)
[2018-12-22 05:00] VITALS: BP 138/59
[2018-12-22] MEDS: InsuLIN REG 1unit/0.01ml Soln (100units/ml) SC SCH ×4 (06:45→21:29)
[2018-12-22] MEDS: ACCU-CHEK COMFORT CURVE STRIP VI SCH ×4 (06:45→21:29)
--- NOTE | 2018-12-22 07:17 | NUR ---
Endorsed care to day shift RN.
--- NOTE | 2018-12-22 07:47 | NUR ---
opening Patient asleep, in bed, bed in lowest position, call light within reach. No distress noted at this time. Will f/u with morning assessment pending social service consult for advance directive information, and Left heart cath is ordered for tomorrow, consents have been completed yesterday when amari Hernandez discussed procedure with patient at bedside. will continue to monitor this patient.
[2018-12-22 08:08] VITALS: BP 126/66
[2018-12-22] MEDS: METOPROLOL TARTRATE 25 MG TAB PO SCH ×2 (09:34→21:29)
[2018-12-22] MEDS: PANTOPRAZOLE 40 MG TAB PO SCH (09:34)
[2018-12-22] MEDS: ASPirin 81 mg TAB PO SCH (09:34)
[2018-12-22] MEDS: INSULIN LANTUS (GLARGINE) 1 /0.01ml (100units/ml) SC SCH ×2 (09:34→21:29)
[2018-12-22] MEDS: NITROGLYCERIN 0.2MG/HR TOPICAL PATCH TD SCH (09:35)
--- NOTE | 2018-12-22 10:22 | NUR ---
MD ANANYA MUÑOZ DISCUSSES [facility] TOMORROW, [place] TO SHOWER ORDER, AND LACTULOSE PRN ORDER
[2018-12-22] MEDS ORDERED: LACTULOSE 20Gm/30ML SOLN PO PRN (11:45)
[2018-12-22 12:27] VITALS: BP 157/89
[2018-12-22 16:17] VITALS: BP 159/87
--- NOTE | 2018-12-22 16:57 | NUR ---
reporting to md reporting to dr gayle recently blood sugar trends in the 200s currently 218, per patient he states his blood sugar normally trends in the 100s at home. and recent blood pressure trends most recent being 159/87 with dizziness symptoms no new orders given
--- NOTE | 2018-12-22 16:58 | NUR ---
nurse note will sit patient up and stop iv fluids
--- NOTE | 2018-12-22 19:30 | NUR ---
Opening Shift Note Assumed care of patient, awake and alert x4. Patient denies pain at this time. No S/S of distress/shortness of breath noted. Instructed on plan of care and to call for assistance as needed, patient verbalized understanding. Bed is locked in lowest position, side rails x 2 are up, call light is within reach, and bed alarm is on.
[2018-12-22] MEDS: TEMAZEPAM 15 MG CAP PO PRN (21:28)
[2018-12-22 22:03] VITALS: BP 136/69
[2018-12-23 04:49] VITALS: BP 135/70
[2018-12-23] MEDS: SODIUM CHLORIDE 0.9% 1,000 ML IV SCH ×2 (05:07→15:07)
--- NOTE | 2018-12-23 05:46 | NUR ---
CHG BATH COMPLETED CHG bath and full linen change completed. Patient tolerated well.
[2018-12-23 06:05] LABS: Basophils # (auto) 0.1 uL; Eosinophils # (auto) 0.5 uL; Eosinophils % (auto) 6.3 % (0.0-7.0); Hematocrit 42.6 % (41.0-53.0); Hemoglobin 14.7 g/dL (13.5-17.5); Lymphocytes # (auto) 2.8 uL; Lymphocytes % (auto) 34.2 % (10.0-50.0); Mean Corpuscular Hemoglobin 31.7 pg (28.0-32.0); Mean Corpuscular Hgb Conc. 34.4 g/dL (32.0-36.0); Mean Corpuscular Volume 92.1 fL (80.0-100.0); Monocytes # (auto) 0.5 uL; Monocytes % (auto) 6.4 % (0.0-12.0); Neutrophils # (auto) 4.3 uL; Neutrophils % (auto) 52.1 % (37.0-80.0); Nucleated Red Blood Cells % 0.1 %; Platelet Count (auto) 206 10^3/uL (140-450); Red Blood Cells 4.63 10^6/uL (4.5-5.90); Red Cell Distribution Width 13.8 % (11.8-14.3); White Blood Cell 8.2 10^3/uL (4.4-10.8)
--- NOTE | 2018-12-23 06:19 | NUR ---
IV insertion IV access obtained, via clean sterile technique by inserting 22 gauge catheter at left hand after 1 attempt. IV secured properly. No trauma to site. Patient tolerated well. IV removal IV to left forearm DC'd with clean sterile technique, catheter fully intact. Pressure dressing applied to site. Patient tolerated well.
[2018-12-23 06:21] LABS: INR 0.95 (0.9-1.15); Partial Thromboplastin Time 28.9 sec (23.64-32.05)
[2018-12-23 06:25] LABS: BUN/Creatinine Ratio 22.4; Calcium 8.4 mg/dL (8.5-10.1); Potassium 3.5 mmol/L (3.5-5.1)
[2018-12-23] MEDS: ACCU-CHEK COMFORT CURVE STRIP VI SCH ×4 (06:51→22:53)
[2018-12-23] MEDS: InsuLIN REG 1unit/0.01ml Soln (100units/ml) SC SCH ×4 (06:51→22:53)
--- NOTE | 2018-12-23 07:45 | NUR ---
Opening patient in bed, asleep, bed in lowest position, call light within reach. No distress noted at this time. Will f/u with morning assessment. Patient is pending [facility] today, with Dr Laguerre, consents and checklist completed. Awaiting procedure will continue to monitor this patient.
[2018-12-23 09:00] VITALS: BP 150/84
[2018-12-23] MEDS: PANTOPRAZOLE 40 MG TAB PO SCH (10:00)
[2018-12-23] MEDS: ASPirin 81 mg TAB PO SCH (10:00)
[2018-12-23] MEDS: NITROGLYCERIN 0.2MG/HR TOPICAL PATCH TD SCH (10:00)
[2018-12-23] MEDS: INSULIN LANTUS (GLARGINE) 1 /0.01ml (100units/ml) SC SCH ×2 (10:00→22:53)
[2018-12-23] MEDS: METOPROLOL TARTRATE 25 MG TAB PO SCH ×2 (10:45→22:52)
--- NOTE | 2018-12-23 11:00 | NUR ---
pt off unit in [employer]
[2018-12-23] MEDS ORDERED: IODIXANOL 320MG/ML 100ML BTL IV ONE (14:13)
[2018-12-23] MEDS ORDERED: LIDOCAINE 2%HCL (LOCAL ANESTH.) INJ 20ML MDV ONE (14:13)
[2018-12-23] MEDS ORDERED: ANGIOMAX 250 MG VIAL IV ONE (14:25)
[2018-12-23] MEDS ORDERED: VERAPAMIL 2.5MG/ML INJ 2ML VIAL IV ONE (14:25)
[2018-12-23] MEDS ORDERED: SODIUM CHL 0.9% 0 ML ONE (14:26)
[2018-12-23] MEDS ORDERED: fentaNYL CITRATE 100 MCG/2 ML VL ONE (14:26)
[2018-12-23] MEDS ORDERED: MIDAZOLAM HCL 1MG/1ML-2 ML VIAL ONE (14:26)
[2018-12-23] MEDS ORDERED: HEPARIN SODIUM (PORCINE) 5000 UNITS/ML 1ML VIAL ONE (15:05)
--- NOTE | 2018-12-23 15:44 | NUR ---
assessment Patient has no post discharge needs identified. Addendum: 12/23/18 at 1545 by China WHITTEN Amended: Links added.
--- NOTE | 2018-12-23 15:45 | NUR ---
Pt was away for procedure in electronic lab technician and was unable to get a signature.
[2018-12-23 16:54] VITALS: BP 143/83
--- NOTE | 2018-12-23 19:10 | NUR ---
Opening Shift Note Assumed care of patient, awake and alert x4. Visitors noted at the bedside. Patient noted to have right radial vasc band. This RN deflated 2ml of air as ordered, no bleeding noted from the site. Will continue to deflate as ordered by MD until completely deflated. Patient denies pain at this time. No S/S of distress/shortness of breath noted at this time. Instructed on plan of care and to call for assistance as needed, patient verbalized understanding. Bed is locked in lowest position, side rails x 2 are up, call light is within reach, and bed alarm is on.
--- NOTE | 2018-12-23 21:15 | NUR ---
VASC BAND REMOVED Vasc band removed as instructed by MD. No bleeding noted at the site. Site covered with gauze and Tegaderm. Patient denies numbness to bilateral hands. Capillary refill is less then 3 seconds bilaterally to both hands. Bilateral hands warm to touch. Educated patient to avoid heavy lifting, pushing, or pulling with affected wrist for one week. Educated patient not to submerge right wrist in water (bath, hot tubs, swimming) for one week. Educated patient that he may remove the dressing after 24 hours and shower. Patient verbalized understanding.
[2018-12-23 22:00] VITALS: BP 148/96
[2018-12-23] MEDS: TEMAZEPAM 15 MG CAP PO PRN (22:52)
[2018-12-24 05:00] VITALS: BP 122/70
[2018-12-24] MEDS: InsuLIN REG 1unit/0.01ml Soln (100units/ml) SC SCH ×2 (06:28→11:46)
[2018-12-24] MEDS: ACCU-CHEK COMFORT CURVE STRIP VI SCH ×2 (06:28→11:40)
[2018-12-24] MEDS: SODIUM CHLORIDE 0.9% 1,000 ML IV SCH ×2 (06:29→11:07)
--- NOTE | 2018-12-24 07:45 | NUR ---
Opening Note Assumed pt care from NOC nurse. Pt is a/ox4 with no s/s of distress or SOB. Pt is currently laying in bed with no complaints. Dressing to pt's R hand from [facility] is clean, dry and intact. Radial pulses are 2+ and cap refill is <3 sec. Discussed POC with pt and possible d/c today; pt verbalized understanding. Safety measures maintained with call light within reach, bed in lowest position and side rails up. Will continue to monitor for changes q1hr and prn.
[2018-12-24 09:15] VITALS: BP 138/78
[2018-12-24] MEDS: NITROGLYCERIN 0.2MG/HR TOPICAL PATCH TD SCH (09:28)
[2018-12-24] MEDS: PANTOPRAZOLE 40 MG TAB PO SCH (09:28)
[2018-12-24] MEDS: INSULIN LANTUS (GLARGINE) 1 /0.01ml (100units/ml) SC SCH (09:28)
[2018-12-24] MEDS: ASPirin 81 mg TAB PO SCH (09:28)
[2018-12-24] MEDS: METOPROLOL TARTRATE 25 MG TAB PO SCH (09:28)
--- NOTE | 2018-12-24 10:53 | NUR ---
Dr Mauricio at Bedside Plans to d/c today. Follow up with pulmonology, GI, cardio and PCP post discharge. Will follow through with orders.
[2018-12-24 11:58] VITALS: BP 138/78
--- NOTE | 2018-12-24 12:20 | NUR ---
IV and Tele Box d/c'ed IV to pt's L hand removed fully intact. Site is asymptomatic. Pt tolerated removal well. Gauze applied to site for 3 minutes and then wrapped in coban. Pt instructed to leave dressing on for 30 minutes. Pt verbalized understanding.
--- NOTE | 2018-12-24 12:41 | NUR ---
Pt D/C'ed off Unit Pt ambulated off unit with all belongings. IV and tele box d/c'ed. Pt provided all education material, instructions as well as information regarding follow up appointments. Pt verbalized understanding.
== END 2018-12-24 12:41 | disposition home or self-care (01) | DRG 287 ==
LOC: ER 12:28 → TELE 12:29 → TELE-WESTW 21:55
PROVIDERS: ADMIT Internal Medicine; ATTEND Family Medicine
PROC: 4A023N7 Measurement of Cardiac Sampling and Pressure, Left Heart, Percutaneous Approach (ICD-10-PCS; principal; 2018-12-23)
PROC: B2111ZZ Fluoroscopy of Multiple Coronary Arteries using Low Osmolar Contrast (ICD-10-PCS; 2018-12-23)
PROC: B2151ZZ Fluoroscopy of Left Heart using Low Osmolar Contrast (ICD-10-PCS; 2018-12-23)
DX: R07.89 Other chest pain (principal); E11.319 Type 2 diabetes mellitus with unspecified diabetic retinopathy without macular edema; E78.5 Hyperlipidemia, unspecified; H26.9 Unspecified cataract; E03.9 Hypothyroidism, unspecified; R91.1 Solitary pulmonary nodule; K42.9 Umbilical hernia without obstruction or gangrene; I10 Essential (primary) hypertension; E66.01 Morbid (severe) obesity due to excess calories; Z68.36 Body mass index [BMI] 36.0-36.9, adult; Z82.49 Family history of ischemic heart disease and other diseases of the circulatory system; Z83.3 Family history of diabetes mellitus
CPT/HCPCS: 36415; 71045; 71260; 74176; 78452; 80048; 80053; 81001; 82150; 82550; 82962; 83036; 83690; 84484; 85025; 85379; 85610; 85730; 86850; 86900; 86901; 93017; 93306; 93458; 96360; 99152; G0378; J0153; J1815; J2250; Q9967

== ENCOUNTER → 2019-02-08 | Day surgery (SDC) | payer OTHER ==
[2019-02-02 10:36] LABS: Basophils # (auto) 0.1 uL; Basophils % (auto) 1.1 % (0.0-2.0); Eosinophils # (auto) 0.5 uL; Eosinophils % (auto) 6.8 % (0.0-7.0); Hematocrit 42.2 % (41.0-53.0); Hemoglobin 14.6 g/dL (13.5-17.5); Lymphocytes # (auto) 2.4 uL; Lymphocytes % (auto) 30.7 % (10.0-50.0); Mean Corpuscular Hemoglobin 31.8 pg (28.0-32.0); Mean Corpuscular Hgb Conc. 34.7 g/dL (32.0-36.0); Mean Corpuscular Volume 91.6 fL (80.0-100.0); Monocytes # (auto) 0.4 uL; Monocytes % (auto) 5.4 % (0.0-12.0); Neutrophils # (auto) 4.3 uL; Platelet Count (auto) 247 10^3/uL (140-450); Red Cell Distribution Width 13.7 % (11.8-14.3); White Blood Cell 7.7 10^3/uL (4.4-10.8)
[2019-02-02 10:50] LABS: INR 0.95 (0.9-1.15); Partial Thromboplastin Time 27.6 sec (23.64-32.05)
[~2019-02-08] VITALS: Ht 175.3 cm; Wt 102.5 kg
[~2019-02-08] MED LIST changes: +LIDOCAINE VISCOUS 2% 15ML UD ONE; +SODIUM CHLORIDE LOCK 10 ML ONE; +diphenhdrAMINE HCL 50 MG/1 ML VL ONE
[2019-02-08] MEDS: MIDAZOLAM HCL 5 MG/ML-1ML VIAL ONE ×2 (10:48→10:51)
[2019-02-08] MEDS: fentaNYL CITRATE 100 MCG/2 ML VL ONE ×2 (10:48→10:51)
[2019-02-08 11:28] VITALS: BP 116/71
== END | disposition home or self-care (01) ==
LOC: GI 09:16
PROVIDERS: ATTEND Internal Medicine Gastroenterology
DX: K29.50 Unspecified chronic gastritis without bleeding (principal); K29.80 Duodenitis without bleeding; E11.9 Type 2 diabetes mellitus without complications; E66.9 Obesity, unspecified; Z79.84 Long term (current) use of oral hypoglycemic drugs; Z79.4 Long term (current) use of insulin; Z79.899 Other long term (current) drug therapy; Z79.82 Long term (current) use of aspirin; Z87.891 Personal history of nicotine dependence; Z68.33 Body mass index [BMI] 33.0-33.9, adult
CPT/HCPCS: 36415; 43239; 82962; 85025; 85610; 85730; 88305; 88342; J2250; J3010; J7030

== ENCOUNTER → 2019-05-07 | Outpatient (CLI) | payer OTHER ==
[~2019-05-07] MED LIST changes: -LIDOCAINE VISCOUS 2% 15ML UD ONE; -SODIUM CHLORIDE LOCK 10 ML ONE; -diphenhdrAMINE HCL 50 MG/1 ML VL ONE
[2019-05-07 11:54] LABS: Basophils # (auto) 0.1 uL; Eosinophils # (auto) 0.3 uL; Eosinophils % (auto) 4.7 % (0.0-7.0); Hematocrit 43.9 % (41.0-53.0); Hemoglobin 15.2 g/dL (13.5-17.5); Lymphocytes # (auto) 2.3 uL; Lymphocytes % (auto) 34.5 % (10.0-50.0); Mean Corpuscular Hgb Conc. 34.6 g/dL (32.0-36.0); Mean Corpuscular Volume 92.4 fL (80.0-100.0); Monocytes # (auto) 0.4 uL; Monocytes % (auto) 5.6 % (0.0-12.0); Neutrophils # (auto) 3.7 uL; Neutrophils % (auto) 54.2 % (37.0-80.0); Platelet Count (auto) 206 10^3/uL (140-450); Red Blood Cells 4.75 10^6/uL (4.5-5.90); White Blood Cell 6.8 10^3/uL (4.4-10.8)
[2019-05-07 12:17] LABS: Potassium 4.1 mmol/L (3.5-5.1)
[2019-05-07 12:29] LABS: Albumin 3.8 g/dL (3.4-5.0); BUN/Creatinine Ratio 19.1; Bilirubin, Total 0.3 mg/dL (0.2-1.0); Calcium 9.2 mg/dL (8.5-10.1); Total Protein 7.5 g/dL (6.4-8.2)
== END | disposition home or self-care (01) ==
LOC: LAB 10:44
PROVIDERS: ATTEND Family Medicine
DX: E11.9 Type 2 diabetes mellitus without complications (principal); E78.49 Other hyperlipidemia; E66.01 Morbid (severe) obesity due to excess calories; I10 Essential (primary) hypertension
CPT/HCPCS: 36415; 80053; 80061; 82043; 83036; 84153; 84443; 85025

== ENCOUNTER 2019-06-07 20:29 | Emergency (ER) | payer OTHER ==
[~2019-06-07] VITALS: Ht 175.3 cm; Wt 113.4 kg
[~2019-06-07 20:29] MED LIST changes: -MECL-87 PO; +MECL25TA18 PO
[2019-06-07 21:42] LABS: Basophils # (auto) 0.1 10 ^3/uL (0-0.2); Basophils % (auto) 1.1 % (0.0-2.0); Eosinophils # (auto) 0.3 10 ^3/uL (0-0.8); Eosinophils % (auto) 4.9 % (0.0-7.0); Hematocrit 44.2 % (41.0-53.0); Lymphocytes # (auto) 1.7 10 ^3/uL (0.4-5.4); Lymphocytes % (auto) 25.7 % (10.0-50.0); Mean Corpuscular Hemoglobin 31.1 pg (28.0-32.0); Mean Corpuscular Volume 91.5 fL (80.0-100.0); Monocytes # (auto) 0.3 10 ^3/uL (0-1.3); Monocytes % (auto) 5.1 % (0.0-12.0); Neutrophils # (auto) 4.2 10 ^3/uL (1.6-8.6); Neutrophils % (auto) 63.2 % (37.0-80.0); Nucleated Red Blood Cells % 0.1 %; Platelet Count (auto) 210 10^3/uL (140-450); Red Blood Cells 4.83 10^6/uL (4.5-5.90); Red Cell Distribution Width 13.5 % (11.8-14.3); White Blood Cell 6.7 10^3/uL (4.4-10.8)
[2019-06-07 21:47] LABS: Urine WBC None Seen /hpf (0 - 3)
[2019-06-07 21:55] LABS: Urine Bacteria NONE SEEN /hpf (None Seen); Urine Blood TRACE /uL (Negative); Urine Specific Gravity 1.006 (1.001-1.035)
[2019-06-07 21:57] LABS: INR 0.94 (0.9-1.15); Partial Thromboplastin Time 27.9 sec (23.64-32.05)
[2019-06-07 21:59] LABS: Potassium 4.1 mmol/L (3.5-5.1)
[2019-06-07 22:11] LABS: Albumin 3.9 g/dL (3.4-5.0); BUN/Creatinine Ratio 14.2; Bilirubin, Total 0.4 mg/dL (0.2-1.0); Calcium 8.5 mg/dL (8.5-10.1); Magnesium 1.9 mg/dL (1.6-2.6); Total Protein 7.8 g/dL (6.4-8.2)
[2019-06-08 01:14] VITALS: BP 168/98
[2019-06-08] MEDS ORDERED: cloNIDine HCL 0.1 MG TAB PO ONE (01:15)
== END 2019-06-08 01:13 | disposition home or self-care (01) ==
LOC: EDBD 20:29 → ER 20:37
DX: I10 Essential (primary) hypertension (principal); E11.65 Type 2 diabetes mellitus with hyperglycemia; E78.5 Hyperlipidemia, unspecified; Z86.73 Personal history of transient ischemic attack (TIA), and cerebral infarction without residual deficits
CPT/HCPCS: 36415; 71045; 80053; 81001; 83735; 83880; 84443; 84484; 85025; 85610; 85730; 93005

== ENCOUNTER → 2020-04-05 | Outpatient (CLI) | payer OTHER ==
[2020-04-05 08:43] LABS: Basophils # (auto) 0.1 10 ^3/uL (0-0.2); Basophils % (auto) 0.8 % (0.0-2.0); Eosinophils # (auto) 0.4 10 ^3/uL (0-0.8); Hematocrit 41.2 % (41.0-53.0); Hemoglobin 14.6 g/dL (13.5-17.5); Lymphocytes # (auto) 3.3 10 ^3/uL (0.4-5.4); Lymphocytes % (auto) 39.8 % (10.0-50.0); Mean Corpuscular Hemoglobin 31.7 pg (28.0-32.0); Mean Corpuscular Hgb Conc. 35.4 g/dL (32.0-36.0); Mean Corpuscular Volume 89.6 fL (80.0-100.0); Monocytes # (auto) 0.7 10 ^3/uL (0-1.3); Monocytes % (auto) 7.9 % (0.0-12.0); Neutrophils # (auto) 3.9 10 ^3/uL (1.6-8.6); Neutrophils % (auto) 46.5 % (37.0-80.0); Red Cell Distribution Width 13.3 % (11.8-14.3); White Blood Cell 8.4 10^3/uL (4.4-10.8)
[2020-04-05 08:53] LABS: Albumin 3.7 g/dL (3.4-5.0); Calcium 8.9 mg/dL (8.5-10.1); Potassium 4.2 mmol/L (3.5-5.1)
[2020-04-05 08:57] LABS: BUN/Creatinine Ratio 18.9; Bilirubin, Total 0.5 mg/dL (0.2-1.0); Total Protein 7.4 g/dL (6.4-8.2)
== END | disposition home or self-care (01) ==
LOC: LAB 08:22
PROVIDERS: ATTEND Internal Medicine
DX: E11.9 Type 2 diabetes mellitus without complications (principal); I10 Essential (primary) hypertension; I25.118 Atherosclerotic heart disease of native coronary artery with other forms of angina pectoris
CPT/HCPCS: 36415; 80053; 80061; 82043; 83036; 84443; 85025

== ENCOUNTER → 2020-05-12 | Outpatient (CLI) | payer OTHER | END | disposition home or self-care (01) | LOC: XYW 09:32 | PROVIDERS: ATTEND Internal Medicine | DX: I05.8 Other rheumatic mitral valve diseases (principal); I11.9 Hypertensive heart disease without heart failure | CPT/HCPCS: 93306 ==

== ENCOUNTER → 2020-05-23 | Outpatient (CLI) | payer OTHER ==
[~2020-05-23] VITALS: Ht 172.7 cm; Wt 109.8 kg
[~2020-05-23] MED LIST changes: +ADENOSINE 92 MG in GIVE UN-DILUTED 0 ML IV STA
[2020-05-23 09:17] VITALS: BP 121/61
== END | disposition home or self-care (01) ==
LOC: XY 07:50
PROVIDERS: ATTEND Internal Medicine
DX: R07.9 Chest pain, unspecified (principal)
CPT/HCPCS: 78452; 93017; A9500; J0153

== ENCOUNTER → 2020-08-18 | Outpatient (CLI) | payer OTHER ==
[~2020-08-18] MED LIST changes: -ADENOSINE 92 MG in GIVE UN-DILUTED 0 ML IV STA
[2020-08-18 15:01] LABS: BUN/Creatinine Ratio 17.4; Calcium 9.5 mg/dL (8.5-10.1); Potassium 4.4 mmol/L (3.5-5.1)
== END | disposition home or self-care (01) ==
LOC: LAB 14:18
PROVIDERS: ATTEND Student in an Organized Health Care Education/Training Program
DX: E03.9 Hypothyroidism, unspecified (principal); E11.49 Type 2 diabetes mellitus with other diabetic neurological complication
CPT/HCPCS: 36415; 80048; 83036; 84443

== ENCOUNTER 2020-11-28 09:23 | Outpatient (CLI) | payer OTHER ==
[~2020-11-28] VITALS: Ht 167.6 cm; Wt 104.3 kg
[2020-11-28] VITALS (7 sets, daily range): BP systolic 110–130; BP diastolic 52–61
[2020-11-28] MEDS ORDERED: REGENERON 1200mg/250ml NS 250 ML IV ONE (10:15)
[2020-11-28] MEDS ORDERED: ACETAMINOPHEN 325 MG TAB PO ONE (11:00)
== END 2020-11-28 12:39 | disposition home or self-care (01) ==
LOC: ER 09:23
PROVIDERS: ATTEND Internal Medicine
DX: U07.1 COVID-19 (principal); E11.9 Type 2 diabetes mellitus without complications
CPT/HCPCS: J7050; M0243; Q0244

== ENCOUNTER → 2021-04-05 | Outpatient (CLI) | payer OTHER ==
[2021-04-05 10:49] LABS: Urine WBC None Seen /hpf (0 - 3)
[2021-04-05 11:24] LABS: Albumin 3.5 g/dL (3.4-5.0)
[2021-04-05 11:33] LABS: BUN/Creatinine Ratio 17.4; Bilirubin, Total 0.3 mg/dL (0.2-1.0); Calcium 8.5 mg/dL (8.5-10.1)
[2021-04-05 11:54] LABS: Urine Bacteria FEW /hpf (None Seen); Urine Blood Negative /uL (Negative); Urine Mucus FEW (None Seen); Urine Specific Gravity 1.014 (1.001-1.035); Urine Sperm PRESENT /hpf (None Seen)
[2021-04-05 12:49] LABS: Basophils # (auto) 0 10 ^3/uL (0-0.2); Basophils % (auto) 0.7 % (0.0-2.0); Eosinophils # (auto) 0.3 10 ^3/uL (0-0.8); Eosinophils % (auto) 4.7 % (0.0-7.0); Hematocrit 41.1 % (41.0-53.0); Lymphocytes % (auto) 31.3 % (10.0-50.0); Mean Corpuscular Hemoglobin 31.2 pg (28.0-32.0); Mean Corpuscular Volume 91.8 fL (80.0-100.0); Monocytes # (auto) 0.5 10 ^3/uL (0-1.3); Monocytes % (auto) 7.1 % (0.0-12.0); Neutrophils # (auto) 3.7 10 ^3/uL (1.6-8.6); Neutrophils % (auto) 56.2 % (37.0-80.0); Nucleated Red Blood Cells % 0.1 %; Red Blood Cells 4.48 10^6/uL (4.5-5.90); Red Cell Distribution Width 13.6 % (11.8-14.3); White Blood Cell 6.5 10^3/uL (4.4-10.8)
== END | disposition home or self-care (01) ==
LOC: LAB 10:40
PROVIDERS: ATTEND Student in an Organized Health Care Education/Training Program
DX: E11.9 Type 2 diabetes mellitus without complications (principal); I10 Essential (primary) hypertension; E03.9 Hypothyroidism, unspecified
CPT/HCPCS: 36415; 80053; 80061; 81001; 82043; 83036; 84443; 85025

== ENCOUNTER → 2021-05-07 | Outpatient (CLI) | payer OTHER ==
[~2021-05-07] MED LIST changes: +ALBUAER3 INH; +AMLO-489 PO; +ASPI-543 PO; +ATOR20TA50 PO; +CLON0.1T PO; +FLUT1SPR5 NAS; +GLIP5TAB12 PO; +GLUC-149 VI; +LEVO50TA7 PO; +METO25TA5 PO; +NITR0.4S29 SL; +PANT40TA2 PO; +TAMS0.4C36 PO
[2021-05-07 10:58] LABS: INR 0.99 (0.9-1.15); Partial Thromboplastin Time 29.6 sec (23.6-33.0)
[2021-05-07 12:55] LABS: Basophils # (auto) 0.1 10 ^3/uL (0-0.2); Basophils % (auto) 0.8 % (0.0-2.0); Eosinophils # (auto) 0.2 10 ^3/uL (0-0.8); Eosinophils % (auto) 3.4 % (0.0-7.0); Hematocrit 41.2 % (41.0-53.0); Hemoglobin 14.2 g/dL (13.5-17.5); Lymphocytes % (auto) 27.8 % (10.0-50.0); Mean Corpuscular Hemoglobin 31.3 pg (28.0-32.0); Mean Corpuscular Hgb Conc. 34.5 g/dL (32.0-36.0); Mean Corpuscular Volume 90.8 fL (80.0-100.0); Monocytes # (auto) 0.4 10 ^3/uL (0-1.3); Monocytes % (auto) 5.8 % (0.0-12.0); Neutrophils # (auto) 4.5 10 ^3/uL (1.6-8.6); Neutrophils % (auto) 62.2 % (37.0-80.0); Nucleated Red Blood Cells % 3.2 %; Red Blood Cells 4.54 10^6/uL (4.5-5.90); Red Cell Distribution Width 13.7 % (11.8-14.3); White Blood Cell 7.2 10^3/uL (4.4-10.8)
[2021-05-07 13:19] LABS: Albumin 3.7 g/dL (3.4-5.0); BUN/Creatinine Ratio 18.9; Calcium 9.3 mg/dL (8.5-10.1); Potassium 4.3 mmol/L (3.5-5.1)
[2021-05-07 13:21] LABS: Bilirubin, Total 0.4 mg/dL (0.2-1.0); Total Protein 7.1 g/dL (6.4-8.2)
== END | disposition home or self-care (01) ==
LOC: LAB 10:04
PROVIDERS: ATTEND Internal Medicine
DX: Z01.812 Encounter for preprocedural laboratory examination (principal); I10 Essential (primary) hypertension
CPT/HCPCS: 36415; 80053; 85025; 85610; 85730

== ENCOUNTER 2021-05-09 07:49 | Day surgery (SDC) | payer OTHER ==
[~2021-05-09] VITALS: Ht 177.8 cm; Wt 105.2 kg
[~2021-05-09 07:49] MED LIST changes: -ASPI-543 PO; -METO25TA5 PO; -TRAM50TA2 PO
[2021-05-09] MEDS ORDERED: HEPARIN SODIUM (PORCINE) 5000 UNITS/ML 1ML VIAL ONE (08:55)
[2021-05-09] MEDS ORDERED: MIDAZOLAM HCL 2MG/2ML 2ml VIAL (1mg/ml) ONE (08:55)
[2021-05-09] MEDS ORDERED: SODIUM CHL 0.9% 0 ML ONE (08:55)
[2021-05-09] MEDS ORDERED: ANGIOMAX 250 MG VIAL IV ONE (08:55)
[2021-05-09] MEDS ORDERED: VERAPAMIL 2.5MG/ML INJ 2ML VIAL IV ONE (08:55)
[2021-05-09] MEDS ORDERED: fentaNYL CITRATE 100 MCG/2 ML VL ONE (08:55)
[2021-05-09] MEDS ORDERED: IOHEXOL 350 MG/ML 100ML IJ ONE (08:56)
[2021-05-09] MEDS ORDERED: LIDOCAINE 2%HCL (LOCAL ANESTH.) INJ 20ML MDV ONE (08:57)
[2021-05-09] MEDS ORDERED: METO25TA5 PO (09:52)
[2021-05-09] MEDS ORDERED: ASPI-543 PO (09:52)
== END 2021-05-09 11:55 | disposition home or self-care (01) ==
LOC: CATH 07:49
PROVIDERS: ATTEND Internal Medicine
DX: R94.39 Abnormal result of other cardiovascular function study (principal); I20.9 Angina pectoris, unspecified; Z87.891 Personal history of nicotine dependence; Z82.49 Family history of ischemic heart disease and other diseases of the circulatory system; Z83.3 Family history of diabetes mellitus; Z80.8 Family history of malignant neoplasm of other organs or systems; Z20.822 Contact with and (suspected) exposure to COVID-19
CPT/HCPCS: 93458; C1769; C1894; J1644; J2250; J3010; Q9967; U0003; 99152

== ENCOUNTER → 2022-01-14 | Outpatient (CLI) | payer OTHER ==
[~2022-01-14] MED LIST changes: +ASPI-543 PO; -ASPI81CH43 PO; -GLUC-149 VI; -MET25T PO; +METO25TA5 PO
[2022-01-14 10:31] LABS: Basophils # (auto) 0.1 10 ^3/uL (0-0.2); Basophils % (auto) 0.8 % (0.0-2.0); Eosinophils # (auto) 0.3 10 ^3/uL (0-0.8); Eosinophils % (auto) 3.6 % (0.0-7.0); Hematocrit 40.9 % (41.0-53.0); Lymphocytes # (auto) 2.2 10 ^3/uL (0.4-5.4); Lymphocytes % (auto) 29.4 % (10.0-50.0); Mean Corpuscular Hemoglobin 31.6 pg (28.0-32.0); Mean Corpuscular Hgb Conc. 34.3 g/dL (32.0-36.0); Mean Corpuscular Volume 92.2 fL (80.0-100.0); Monocytes # (auto) 0.5 10 ^3/uL (0-1.3); Monocytes % (auto) 6.8 % (0.0-12.0); Neutrophils # (auto) 4.4 10 ^3/uL (1.6-8.6); Neutrophils % (auto) 59.4 % (37.0-80.0); Nucleated Red Blood Cells % 0.1 %; Red Blood Cells 4.43 10^6/uL (4.5-5.90); White Blood Cell 7.4 10^3/uL (4.4-10.8)
[2022-01-14 12:25] LABS: Albumin 3.4 g/dL (3.4-5.0); BUN/Creatinine Ratio 19.6; Bilirubin, Total 0.4 mg/dL (0.2-1.0); CRP High Sensitivity 0.81 mg/dL (< 0.3); Calcium 8.7 mg/dL (8.5-10.1); Potassium 3.8 mmol/L (3.5-5.1); Total Protein 7.1 g/dL (6.4-8.2)
== END | disposition home or self-care (01) ==
LOC: LAB 10:00
PROVIDERS: ATTEND Internal Medicine
DX: E11.9 Type 2 diabetes mellitus without complications (principal); R06.02 Shortness of breath; M26.30 Unspecified anomaly of tooth position of fully erupted tooth or teeth
CPT/HCPCS: 36415; 80053; 83036; 83880; 85025; 85379; 86141

== ENCOUNTER → 2022-01-16 | Outpatient (CLI) | payer OTHER | END | disposition home or self-care (01) | LOC: LAB 08:29 | PROVIDERS: ATTEND Internal Medicine | DX: I26.99 Other pulmonary embolism without acute cor pulmonale (principal) | CPT/HCPCS: 36415; 82565; 84520 ==

== ENCOUNTER → 2022-04-22 | Outpatient (CLI) | payer OTHER ==
[2022-04-22 10:53] LABS: Cholesterol 97 mg/dL (< 200); HDL Cholesterol 34 mg/dL (40-59); LDL Cholesterol 55 mg/dL (< 100); Triglycerides 112 mg/dL (< 150)
== END | disposition home or self-care (01) ==
LOC: LAB 09:44
PROVIDERS: ATTEND Internal Medicine
DX: Z12.5 Encounter for screening for malignant neoplasm of prostate (principal); I10 Essential (primary) hypertension
CPT/HCPCS: 36415; 80061; 82043; 82270; 83036

== ENCOUNTER → 2022-05-09 | Outpatient (CLI) | payer OTHER | END | disposition home or self-care (01) | LOC: XYW 09:32 | PROVIDERS: ATTEND Student in an Organized Health Care Education/Training Program | DX: E11.40 Type 2 diabetes mellitus with diabetic neuropathy, unspecified (principal) | CPT/HCPCS: 93925 ==

== ENCOUNTER → 2022-05-16 | Outpatient (CLI) | payer OTHER ==
[~2022-05-16] VITALS: Ht 172.7 cm; Wt 99.8 kg
[~2022-05-16] MED LIST changes: +ADENOSINE 84 MG in GIVE UN-DILUTED 0 ML IV ONE
== END | disposition home or self-care (01) ==
LOC: XYW 08:38
PROVIDERS: ATTEND Internal Medicine
DX: I11.0 Hypertensive heart disease with heart failure (principal); I50.42 Chronic combined systolic (congestive) and diastolic (congestive) heart failure; R07.9 Chest pain, unspecified; R06.02 Shortness of breath; E11.3599 Type 2 diabetes mellitus with proliferative diabetic retinopathy without macular edema, unspecified eye; E66.01 Morbid (severe) obesity due to excess calories; G47.33 Obstructive sleep apnea (adult) (pediatric); Z79.4 Long term (current) use of insulin; Z68.41 Body mass index [BMI] 40.0-44.9, adult
CPT/HCPCS: 78452; 93017; A9500; J0153